=== PATIENT | male | born 1995 | race African-American/Black ===

== ENCOUNTER → 2019-05-27 | Emergency (ER) | payer OTHER ==
[~2019-05-27] VITALS: Ht 180.3 cm; Wt 76.0 kg
[2019-05-27 16:05] VITALS: BP 136/82
== END | disposition left against medical advice (07) ==
LOC: CANPREER → ER 15:50
DX: R07.89 Other chest pain (principal); Z53.21 Procedure and treatment not carried out due to patient leaving prior to being seen by health care provider
CPT/HCPCS: 93005; 99283